=== PATIENT | female | born 1990 | race Hispanic/Latino ===

== ENCOUNTER 2017-10-29 19:21 | Emergency (ER) | payer OTHER ==
[~2017-10-29] VITALS: Ht 160 cm; Wt 59.0 kg
[~2017-10-29 19:21] MED LIST: AMOXICILLIN500 M2 PO; BENZONATATE200 M1 PO; FAMOTIDINE40 M1 PO; IOPHEN-C NR LI473 ML PO; LYRICA150 M1 PO; NORCO 5-325 TA1 EACH PO; ZINC50 M3 PO
--- NOTE | 2017-10-29 20:01 | ED EYE COMPLAINT ---
History of Present Illness General Chief Complaint: Eye Problems Stated Complaint: PAIN AND SWELLING L EYE Source: patient Exam Limitations: no limitations Vital Signs & Intake/Output Vital Signs & Intake/Output Vital Signs Date Time Temp Pulse Resp B/P B/P Pulse O2 O2 Flow FiO2 Mean Ox Delivery Rate 10/29 2212 98.3 74 18 109/64 98 Room Air 10/29 2138 98 Room Air 10/29 1936 97.1 106 18 123/81 98 Room Air ED Intake and Output 10/30 0000 10/29 1200 Intake Total 0 Output Total Balance 0 Intake, IV 0 Patient 130 lb Weight Allergies Coded Allergies: gluten (GI UPSET 06/07/16) Triage Note: PT TO TRIAGE C/O LEFT EYELID SWELLING X2 DAYS. PT REPORTS BLURRY VISION. SAW URGENT CARE, RX KEFLEX AND OINTMENT. Triage Nurses Notes Reviewed? yes Onset: Gradual Duration: getting worse Timing: single episode today Injury Environment: home Severity: severe Severity Numbers: 7 : No Patient currently breastfeeds: No HPI: Patient is a 27-year-old female with a past medical history of lupus who presents emergency room with concerns of gradual onset of a 6 hour history today of left-sided eye pain and redness to the eyelid and swelling. Patient denies any mechanism injury states she does wear contact lenses however prior to the onset of her symptoms she did take her contacts out after she was finished with her job at work. Patient complaining of blurred vision. Patient was evaluated at urgent care facility was given prescription of erythromycin ointment and Keflex were patient has taken one dose of each medication and states she is still complaining of severe pain. Patient has tactile fevers. Denies any headache sore throat trauma or foreign body sensation (Matti Hogue) Reconcile Medications Amoxicillin 500 MG CAPSULE 1 CAP PO BID ANTIBIOTIC (Reported) Benzonatate 200 MG CAPSULE 1 CAP PO TID PRN COUGH (Reported) Cephalexin 500 MG CAPSULE 1 CAP PO BID ANTIBIOTIC, INFECTION (Reported) Famotidine 40 MG TABLET 1 TAB PO DAILY DERMOGRAPHISM/GI (Reported) Guaifenesin/Codeine Phosphate (Iophen-C Nr Liquid) 100 MG-10 MG/5 ML LIQUID 5 ML PO QPM COUGH (Reported) Hydrocodone/Acetaminophen (Booker 5-325 Tablet) 5 MG-325 MG TABLET 1-2 TAB PO Q6P PRN PAIN Ketorolac Tromethamine 10 MG TABLET 1 TAB PO TID PRN PAIN Oxycodone HCl/Acetaminophen (Percocet 5-325 MG Tablet) 5 MG-325 MG TABLET 1 TAB PO BID PRN PAIN Pregabalin (Lyrica) 150 MG CAPSULE 1 CAP PO DAILY FIBROMYALGIA (Reported) Zinc Amino Acid Chelate (ZINC) (Unknown Strength) TABLET (Unknown Dose) PO DAILY SUPPLEMENT (Reported) (Tony JORDAN,Storm Mendoza) Past History Travel History Traveled to [place] past 21 day No Medical History Any Pertinent Medical History? see below for history Neurological: NONE EENT: NONE Cardiovascular: NONE Respiratory: NONE Gastrointestinal: NONE Hepatic: NONE Renal: NONE Musculoskeletal: FIBROMYALGIA Psychiatric: NONE Endocrine: NONE Blood Disorders: NONE Cancer(s): NONE Other Medical Hx: LUPUS Surgical History Surgical History: non-contributory Psychosocial History What is your primary language Polish Tobacco Use: Never used Family History Hx Contributory? No (Matti Hogue) Review of Systems Review of Systems Constitutional: Reports: no symptoms. Eyes: Reports: see HPI, blurred vision, inflammation, pain, photophobia. Ear: Reports: no symptoms. Nose: Reports: no symptoms. Mouth: Reports: no symptoms. Throat: Reports: no symptoms. Respiratory: Reports: no symptoms. Cardiovascular: Reports: no symptoms. GI: Reports: no symptoms. Genitourinary: Reports: no symptoms. Musculoskeletal: Reports: no symptoms. Skin: Reports: no symptoms. Neurological/Psychological: Reports: no symptoms. Hematologic/Endocrine: Reports: no symptoms. Immunologic/Allergic: Reports: no symptoms. All Other Systems: Reviewed and Negative (Matti Hogue) Physical Exam General Appearance: no apparent distress, alert, comfortable General Inspection: periorbital erythema, periorbital swelling Eyelid: everted for exam, erythema Conjunctiva/Sclera: injected (MILD INJECTION) Cornea: examined w/fluorescein, NO FLUOROSCEINE UPTAKE EOM: intact Pupil: normal accommodation, normal pupil, PERRL General Inspection: normal inspection Eyelid: normal inspection Conjunctiva/Sclera: normal inspection Cornea: normal inspection EOM: intact Pupil: normal accommodation, normal pupil, PERRL Physical Exam Head: atraumatic Nose: normal inspection Mouth/Throat: normal mouth inspection Neck: normal inspection Cardiovascular/Respiratory: normal breath sounds, normal peripheral pulses, regular rate/rhythm Skin: intact, normal color (Matti Hogue) Progress Differential Diagnosis: corneal abrasion, corneal foreign body, conjunctivitis, detached retina, glaucoma, globe rupture Plan of Care: Orders Procedure Date/time Status HUMAN BETA HCG SCREEN 10/30 2055 Complete COMPREHENSIVE METABOLIC PANEL 10/30 2023 Complete CBC WITHOUT DIFFERENTIAL 10/30 2023 Complete Laboratory Tests 10/29/172055: Anion Gap 10, Estimated GFR > 60, BUN/Creatinine Ratio 20.0, Glucose 75, Calcium 7.6 L, Total Bilirubin 0.3, AST 12 L, ALT 19, Alkaline Phosphatase 58, Total Protein 6.0 L, Albumin 3.1 L, Globulin 2.9, Albumin/Globulin Ratio 1.1, Total Beta HCG NEGATIVE, CBC w Diff NO MAN DIFF REQ, RBC 4.13 L, MCV 89.6, MCH 29.5, MCHC 33.0, RDW 12.7, MPV 8.7, Gran % 48.7, Lymphocytes % 39.2, Monocytes % 8.0, Eosinophils % 3.5, Basophils % 0.6, Absolute Granulocytes 3.6, Absolute Lymphocytes 2.9, Absolute Monocytes 0.6, Absolute Eosinophils 0.3, Absolute Basophils 0 10/29/172027: Total Beta HCG Cancelled Patient had initial examination has concerns of physical exam findings of periorbital cellulitis versus orbital cellulitis I applied multiple drops to left eye of tetracaine patient then was given FLUOROSCEINE staining and under Wood lamp no uptake was noted. CT scan will be provided CT scan was resulted showing concerns of periorbital cellulitis. Patient had significant improvement of pain with medications administered in the emergency room. Upon discharge patient looks well patient was strongly advised to continue her previously prescribed Keflex and erythromycin ointment She does state that she has an appointment tomorrow with her primary care doctor Diagnostic Imaging: Viewed by Me: CT Scan. Radiology Impression: acute abnormality Comments: PATIENT: SISSY ALONZO PRESENT AGE: 27 PATIENT ACCOUNT NO: [id number] : 90 LOCATION: [facility] ORDERING PHYSICIAN: Matti DAVEY SERVICE DATE: 10/29/17-2023 EXAM TYPE: CAT - CT ORBITS W IV CONTRAST EXAMINATION: CT ORBITS with IV contrast CLINICAL INFORMATION: Orbital versus retro-orbital cellulitis. COMPARISON: None TECHNIQUE: Computer axial tomographic sections acquired through the orbits Department standard protocol approximately 95 mL of Optiray 320 injected. CONTRAST: 95 mL Optiray 320 injected FINDINGS: RIGHT: GLOBES: The globes maintain normal contour. Orbital globe is normally positioned. The distance between the interzygomatic line and the anterior surface of the globe is less than 23 mm. RETRO-ORBITAL SPACE: Retro-orbital space is clear. ORBITAL MUSCLE: All orbital muscles are normal in measurement, less than 4 mm each. OPTIC NERVE: Optic nerves normal in size. FAT: Retro-orbital fat is clear. ORBITAL APEX: There is no significant contact between the optic nerve and the ocular muscles. LACRIMAL GLANDS: Normal ORBITAL BONES: Intact LEFT: There is mild preseptal swelling anterior medial to the LEFT orbits compatible with the clinical history of cellulitis. This does not seem to extend into the preorbital preseptal fat. No CT evidence of extension into the globes. GLOBES: The globes maintain normal contour. Orbital globe is normally positioned. The distance between the interzygomatic line and the anterior surface of the globe is less than 23 mm. RETRO-ORBITAL SPACE: Retro-orbital space is clear. ORBITAL MUSCLE: All orbital muscles are normal in measurement, less than 4 mm each. OPTIC NERVE: Optic nerves normal in size. FAT: Retro-orbital fat is clear. ORBITAL APEX: There is no significant contact between the optic nerve and the ocular muscles. LACRIMAL GLANDS: Normal ORBITAL BONES: Intact OTHER FINDINGS: Included adjacent sinuses are clear. Included intracranial structures are normal. Visualized portion of the parotid glands are normal. IMPRESSION: 1. Left orbital preseptal soft tissue swelling compatible with the clinical diagnosis of cellulitis, there is no CT evidence of extension into the preseptal fat or into the globes. 2. Exam otherwise normal. DICTATED BY: Ladarius Ho MD DATE/TIME DICTATED:10/29/172214 TRANSFER CONTROLLER:[email or web address] DATE/TIME TRANSCRIBED:10/29/172214 CONFIDENTIAL, DO NOT COPY WITHOUT APPROPRIATE AUTHORIZATION. <Electronically signed in Other Vendor System> SIGNED BY: Ladarius Ho MD [id number] (Matti Hogue) Departure Departure Disposition: HOME OR SELF CARE Condition: Stable Clinical Impression Primary Impression: Periorbital cellulitis of left eye Referrals: Gia Barron APRN (PCP/Family) Additional Instructions: As discussed began to apply warm compresses to region and a prescription of Toradol for pain Percocet for breakthrough pain continue to take the previously prescribed medications of Keflex and erythromycin ointment as directed and follow-up with your establish primary care doctor appointment tomorrow if symptoms worsen or if you develop new concerning symptom return to the emergency room Departure Forms: Customer Survey General Discharge Information Prescriptions: Current Visit Scripts Ketorolac Tromethamine 1 TAB PO TID PRN PAIN #15 TAB Oxycodone HCl/Acetaminophen (Percocet 5-325 MG Tablet) 1 TAB PO BID PRN PAIN #8 TAB (Matti Hogue) PA/DIRECTOR PACKAGING Co-Sign Statement Statement: ED Attending supervision documentation- [] I saw and evaluated the patient. I have also reviewed all the pertinent lab results and diagnostic results. I agree with the findings and the plan of care as documented in the PA's/DIRECTOR PACKAGING's documentation. [x] I have reviewed the ED Record and agree with the PA's/DIRECTOR PACKAGING's documentation. [] Additions or exceptions (if any) to the PAs/DIRECTOR PACKAGING's note and plan are summarized below: [] (Tony JORDAN,Storm Mendoza)
[2017-10-29 21:06] LABS: ABSOLUTE BASOPHIL COUNT 0 /CUMM (0.0-0.2); ABSOLUTE EOSINOPHIL COUNT 0.3 /CUMM (0.0-0.7); ABSOLUTE GRANULOCYTE CT 3.6 /CUMM (1.4-6.5); ABSOLUTE LYMPH COUNT 2.9 /CUMM (1.2-3.4); ABSOLUTE MONOCYTE COUNT 0.6 /CUMM (0.10-0.60); BASOPHIL % 0.6 % (0.0-2.0); EOSINOPHIL % 3.5 % (0-5); GRANULOCYTE % 48.7 % (42.2-75.2); MEAN CORPUSCULAR HGB 29.5 PG (27.0-31.0); MEAN CORPUSCULAR VOLUME 89.6 FL (81.0-99.0); MEAN PLATELET VOLUME 8.7 FL (7.4-10.4); PLATELET COUNT 286 /CUMM (130-400); RBC DISTRIBUTION WIDTH 12.7 % (11.5-14.5); RED BLOOD CELL CT 4.13 /CUMM (4.20-5.40); WHITE BLOOD CELL COUNT 7.5 /CUMM (4.8-10.8)
[2017-10-29 22:12] VITALS: BP 109/64
--- NOTE | 2017-10-29 22:25 | CT SCAN REPORT ---
EXAMINATION: CT ORBITS with IV contrast CLINICAL INFORMATION: Orbital versus retro-orbital cellulitis. COMPARISON: None TECHNIQUE: Computer axial tomographic sections acquired through the orbits Department standard protocol approximately 95 mL of Optiray 320 injected. CONTRAST: 95 mL Optiray 320 injected FINDINGS: RIGHT: GLOBES: The globes maintain normal contour. Orbital globe is normally positioned. The distance between the interzygomatic line and the anterior surface of the globe is less than 23 mm. RETRO-ORBITAL SPACE: Retro-orbital space is clear. ORBITAL MUSCLE: All orbital muscles are normal in measurement, less than 4 mm each. OPTIC NERVE: Optic nerves normal in size. FAT: Retro-orbital fat is clear. ORBITAL APEX: There is no significant contact between the optic nerve and the ocular muscles. LACRIMAL GLANDS: Normal ORBITAL BONES: Intact LEFT: There is mild preseptal swelling anterior medial to the LEFT orbits compatible with the clinical history of cellulitis. This does not seem to extend into the preorbital preseptal fat. No CT evidence of extension into the globes. GLOBES: The globes maintain normal contour. Orbital globe is normally positioned. The distance between the interzygomatic line and the anterior surface of the globe is less than 23 mm. RETRO-ORBITAL SPACE: Retro-orbital space is clear. ORBITAL MUSCLE: All orbital muscles are normal in measurement, less than 4 mm each. OPTIC NERVE: Optic nerves normal in size. FAT: Retro-orbital fat is clear. ORBITAL APEX: There is no significant contact between the optic nerve and the ocular muscles. LACRIMAL GLANDS: Normal ORBITAL BONES: Intact OTHER FINDINGS: Included adjacent sinuses are clear. Included intracranial structures are normal. Visualized portion of the parotid glands are normal. IMPRESSION: 1. Left orbital preseptal soft tissue swelling compatible with the clinical diagnosis of cellulitis, there is no CT evidence of extension into the preseptal fat or into the globes. 2. Exam otherwise normal.
[2017-10-29] MEDS ORDERED: KETOROLAC TROME10 M1 PO (22:44)
[2017-10-29] MEDS ORDERED: PERCOCET 5-3251 EACH PO (22:45)
[2017-10-29] MEDS ORDERED: CEPHALEXIN500 M3 PO (22:51)
== END 2017-10-29 23:13 ==
LOC: ERH 19:21
PROVIDERS: Physician Assistant
DX: H05.012 Cellulitis of left orbit (principal)
CPT/HCPCS: 96374; 96375; J0696; J1885